=== PATIENT | female | born 1965 | race Two or more races ===

== ENCOUNTER 2022-02-05 14:48 | Inpatient (IN) | payer OTHER ==
[~2022-02-05] VITALS: Ht 165.1 cm; Wt 79.9 kg
[2022-02-05] MEDS ORDERED: cefTRIAXone 1GM/50ML D5W 50 ML IV ONE (17:30)
[2022-02-05] MEDS ORDERED: KETOROLAC TROMETH 30 MG/ML 1ML VIAL IV ONE (17:30)
[2022-02-05] MEDS ORDERED: LACTATED RINGER'S 1,000 ML IV ONE (17:30)
[2022-02-05 19:04] LABS: Basophils # (auto) 0.1 10 ^3/uL (0-0.2); Basophils % (auto) 0.6 % (0.0-2.0); Eosinophils # (auto) 0 10 ^3/uL (0-0.8); Hematocrit 44.7 % (36.0-46.0); Hemoglobin 15.3 g/dL (12.2-16.2); Lymphocytes # (auto) 0.4 10 ^3/uL (0.4-5.4); Lymphocytes % (auto) 1.8 % (10.0-50.0); Mean Corpuscular Hemoglobin 29.9 pg (28.0-32.0); Mean Corpuscular Hgb Conc. 34.3 g/dL (32.0-36.0); Mean Corpuscular Volume 87.2 fL (80.0-100.0); Monocytes # (auto) 0.8 10 ^3/uL (0-1.3); Monocytes % (auto) 3.9 % (0.0-12.0); Neutrophils # (auto) 18.7 10 ^3/uL (1.6-8.6); Neutrophils % (auto) 93.7 % (37.0-80.0); Red Blood Cells 5.12 10^6/uL (4.0-5.20); Red Cell Distribution Width 13.3 % (11.8-14.3)
[2022-02-05] MEDS ORDERED: MORPHINE SULFATE 4 MG/ML SYR/VIAL IV PRN (19:15)
[2022-02-05] MEDS ORDERED: ONDANSETRON HCL 4 MG/2 ML VIAL IV PRN (19:15)
[2022-02-05] MEDS ORDERED: SODIUM CHLORIDE 0.9% 500 ML IV ONE (19:15)
[2022-02-05] MEDS ORDERED: TAMSULOSIN HYDROCHLORIDE 0.4 MG CAP PO ONE (19:15)
[2022-02-05] MEDS ORDERED: ACETAMINOPHEN 325 MG TAB PO PRN (19:15)
[2022-02-05 19:25] LABS: Albumin 4.2 g/dL (3.4-5.0); Calcium 9.5 mg/dL (8.5-10.1); Potassium 3.9 mmol/L (3.5-5.1)
[2022-02-05 19:27] LABS: Total Protein 8.3 g/dL (6.4-8.2)
[2022-02-05 19:33] LABS: Urine Bacteria FEW /hpf (None Seen); Urine Blood 1+ /uL (Negative); Urine Mucus FEW (None Seen); Urine Specific Gravity 1.022 (1.001-1.035); Urine WBC 116 /hpf (0 - 5)
[2022-02-05 22:00] VITALS: BP 133/73
[2022-02-05 22:02] VITALS: BP 133/73
[2022-02-05] MEDS ORDERED: CIPR-173 PO (22:40)
[2022-02-05] MEDS: HYDROcodone-ACET 5/325MG TAB PO PRN (22:54)
[2022-02-06] VITALS (34 sets, daily range): BP systolic 78–158; BP diastolic 42–74
[2022-02-06] MEDS: HYDROcodone-ACET 5/325MG TAB PO PRN ×2 (05:34→22:31)
[2022-02-06 06:47] LABS: Calcium 8.7 mg/dL (8.5-10.1)
[2022-02-06 06:50] LABS: BUN/Creatinine Ratio 11.7; Basophils # (auto) 0 10 ^3/uL (0-0.2); Basophils % (auto) 0.1 % (0.0-2.0); Eosinophils # (auto) 0 10 ^3/uL (0-0.8); Hematocrit 38.7 % (36.0-46.0); Hemoglobin 13.4 g/dL (12.2-16.2); Lymphocytes # (auto) 0.9 10 ^3/uL (0.4-5.4); Lymphocytes % (auto) 5.2 % (10.0-50.0); Mean Corpuscular Hemoglobin 30.2 pg (28.0-32.0); Mean Corpuscular Hgb Conc. 34.5 g/dL (32.0-36.0); Mean Corpuscular Volume 87.4 fL (80.0-100.0); Monocytes # (auto) 0.7 10 ^3/uL (0-1.3); Monocytes % (auto) 4.1 % (0.0-12.0); Neutrophils # (auto) 15.6 10 ^3/uL (1.6-8.6); Neutrophils % (auto) 90.6 % (37.0-80.0); Red Blood Cells 4.43 10^6/uL (4.0-5.20); Red Cell Distribution Width 13.3 % (11.8-14.3); White Blood Cell 17.3 10^3/uL (4.4-10.8)
[2022-02-06 08:37] LABS: INR 1.05 (0.9-1.15); Partial Thromboplastin Time 30.2 sec (23.6-33.0)
[2022-02-06] MEDS ORDERED: cefTRIAXone 1GM/50ML D5W 50 ML IV SCH ×2 (09:00→21:00)
[2022-02-06] MEDS: PANTOPRAZOLE 40 MG TAB PO SCH (10:00)
[2022-02-06] MEDS ORDERED: fentaNYL CITRATE 100 MCG/2 ML VL ONE (12:00)
[2022-02-06] MEDS ORDERED: MIDAZOLAM HCL 2MG/2ML 2ml VIAL (1mg/ml) ONE (12:01)
[2022-02-06] MEDS ORDERED: LIDOCAINE 2%HCL (LOCAL ANESTH.) INJ 10ml MDV ONE (12:01)
[2022-02-06] MEDS ORDERED: HEPARIN SODIUM (PORCINE) 5000 UNITS/ML 1ML VIAL ONE (12:02)
[2022-02-06] MEDS ORDERED: NITROGLYCERIN 0.4 MG SL TAB SL PRN (13:45)
[2022-02-06] MEDS ORDERED: SODIUM CHLORIDE 0.9% 1,000 ML IV SCH (13:45)
[2022-02-06] MEDS ORDERED: MORPHINE SULFATE INJECTION 2 MG/ML SYRG IV PRN (13:45)
[2022-02-06] MEDS: NOREPINEPHRINE 8 MG/250ML KIT 250 ML IV SCH ×2 (13:45→22:31)
[2022-02-06] MEDS ORDERED: SODIUM CHLORIDE 0.9% 1,000 ML IV ONE (13:45)
[2022-02-06] MEDS ORDERED: ACETAMINOPHEN 650 MG RECT SUPP PR PRN (14:00)
[2022-02-06] MEDS ORDERED: ACETAMINOPHEN IV 1000 MG/100ML (10MG/ML) IV ONE (14:00)
[2022-02-06] MEDS: SODIUM CHLOR 0.9% PF (SALINE LOCK) 10ML VIAL/SYR IV SCH ×2 (14:00→21:38)
[2022-02-06] MEDS ORDERED: FUROSEMIDE 40 MG/4 ML VIAL IV ONE ×2 (14:45→15:15)
[2022-02-06] MEDS ORDERED: FUROSEMIDE 40 MG/4 ML VIAL ONE (15:03)
[2022-02-06] MEDS: MEROPENEM 1GM IVPB 100 ML IV SCH (16:45)
[2022-02-06 17:14] LABS: Hematocrit 36.6 % (36.0-46.0); Hemoglobin 12.7 g/dL (12.2-16.2); Mean Corpuscular Hemoglobin 30.1 pg (28.0-32.0); Mean Corpuscular Hgb Conc. 34.6 g/dL (32.0-36.0); Mean Corpuscular Volume 86.9 fL (80.0-100.0); Red Blood Cells 4.22 10^6/uL (4.0-5.20); Red Cell Distribution Width 13.9 % (11.8-14.3); White Blood Cell 13.8 10^3/uL (4.4-10.8)
[2022-02-06 17:27] LABS: Basophils % (manual) 0 (0.0-2.0); Eosinophils % (manual) 0 (0-7); Promyelocytes % 0
[2022-02-06 17:28] LABS: BUN/Creatinine Ratio 11.9; Blast Cells 0; Calcium 7.6 mg/dL (8.5-10.1); Potassium 3.2 mmol/L (3.5-5.1); Reactive Lymphocytes 0
[2022-02-06 18:43] LABS: Band Neutrophils % (manual) 12; Lymphocytes % (manual) 6 (10.0-50.0); Metamyelocytes % 2; Monocytes % (manual) 4 (0-12); Myelocytes % 1
[2022-02-06] MEDS: TEMAZEPAM 15 MG CAP PO PRN (22:31)
[2022-02-07] VITALS (45 sets, daily range): BP systolic 88–148; BP diastolic 58–89
[2022-02-07] MEDS ORDERED: LINEZOLID 600MG/300ML 300 ML IV SCH (02:00)
[2022-02-07] MEDS: MEROPENEM 1GM IVPB 100 ML IV SCH ×2 (03:32→16:40)
[2022-02-07 04:13] LABS: Hematocrit 37.9 % (36.0-46.0); Hemoglobin 12.9 g/dL (12.2-16.2); Mean Corpuscular Hemoglobin 29.6 pg (28.0-32.0); Mean Corpuscular Hgb Conc. 34.1 g/dL (32.0-36.0); Mean Corpuscular Volume 86.9 fL (80.0-100.0); Red Blood Cells 4.36 10^6/uL (4.0-5.20); Red Cell Distribution Width 13.8 % (11.8-14.3); White Blood Cell 25.1 10^3/uL (4.4-10.8)
[2022-02-07 04:27] LABS: Albumin 2.6 g/dL (3.4-5.0); Calcium 7.8 mg/dL (8.5-10.1); Potassium 3.9 mmol/L (3.5-5.1)
[2022-02-07 04:29] LABS: BUN/Creatinine Ratio 16.1
[2022-02-07 04:32] LABS: Bilirubin, Total 1.5 mg/dL (0.2-1.0); Total Protein 6.1 g/dL (6.4-8.2)
[2022-02-07 04:38] LABS: Basophils % (manual) 0 (0.0-2.0); Blast Cells 0; Eosinophils % (manual) 0 (0-7); Metamyelocytes % 0; Promyelocytes % 0; Reactive Lymphocytes 0
[2022-02-07] MEDS: HYDROcodone-ACET 5/325MG TAB PO PRN (05:33)
[2022-02-07] MEDS: SODIUM CHLOR 0.9% PF (SALINE LOCK) 10ML VIAL/SYR IV SCH ×3 (05:35→21:09)
[2022-02-07 06:33] LABS: Band Neutrophils % (manual) 27; Lymphocytes % (manual) 3 (10.0-50.0); Monocytes % (manual) 2 (0-12); Myelocytes % 5
[2022-02-07] MEDS: PANTOPRAZOLE 40 MG TAB PO SCH (10:00)
[2022-02-07] MEDS ORDERED: FUROSEMIDE 40 MG/4 ML VIAL ONE (10:42)
[2022-02-07] MEDS ORDERED: FUROSEMIDE 40 MG/4 ML VIAL IV ONE (10:45)
[2022-02-07] MEDS: ACETAMINOPHEN 325 MG TAB PO PRN ×4 (12:07→18:54)
[2022-02-07] MEDS: TEMAZEPAM 15 MG CAP PO PRN (21:08)
[2022-02-08] MEDS: HYDROcodone-ACET 5/325MG TAB PO PRN ×3 (00:39→15:49)
[2022-02-08] MEDS: MEROPENEM 1GM IVPB 100 ML IV SCH ×3 (03:37→21:05)
[2022-02-08 05:00] VITALS: BP 124/52
[2022-02-08] MEDS: SODIUM CHLOR 0.9% PF (SALINE LOCK) 10ML VIAL/SYR IV SCH ×3 (05:27→21:05)
[2022-02-08 06:11] LABS: Basophils # (auto) 0 10 ^3/uL (0-0.2); Basophils % (auto) 0.3 % (0.0-2.0); Eosinophils # (auto) 0.2 10 ^3/uL (0-0.8); Eosinophils % (auto) 1.8 % (0.0-7.0); Hematocrit 37.1 % (36.0-46.0); Hemoglobin 12.9 g/dL (12.2-16.2); Lymphocytes # (auto) 1.1 10 ^3/uL (0.4-5.4); Lymphocytes % (auto) 7.9 % (10.0-50.0); Mean Corpuscular Hemoglobin 30.1 pg (28.0-32.0); Mean Corpuscular Hgb Conc. 34.8 g/dL (32.0-36.0); Mean Corpuscular Volume 86.7 fL (80.0-100.0); Monocytes # (auto) 0.8 10 ^3/uL (0-1.3); Monocytes % (auto) 5.7 % (0.0-12.0); Neutrophils # (auto) 11.6 10 ^3/uL (1.6-8.6); Neutrophils % (auto) 84.3 % (37.0-80.0); Red Blood Cells 4.28 10^6/uL (4.0-5.20); Red Cell Distribution Width 13.5 % (11.8-14.3); White Blood Cell 13.8 10^3/uL (4.4-10.8)
[2022-02-08 06:39] LABS: Albumin 2.4 g/dL (3.4-5.0); Calcium 8.2 mg/dL (8.5-10.1); Potassium 3.7 mmol/L (3.5-5.1)
[2022-02-08 06:41] LABS: BUN/Creatinine Ratio 18.1
[2022-02-08 06:43] LABS: Bilirubin, Total 0.7 mg/dL (0.2-1.0)
[2022-02-08 09:00] VITALS: BP 118/62
[2022-02-08] MEDS: PANTOPRAZOLE 40 MG TAB PO SCH (09:49)
[2022-02-08 13:00] VITALS: BP 123/75
[2022-02-08 17:00] VITALS: BP 128/71
[2022-02-08 22:29] VITALS: BP 116/67
[2022-02-09] MEDS: HYDROcodone-ACET 5/325MG TAB PO PRN ×2 (00:21→11:33)
[2022-02-09] MEDS: TEMAZEPAM 15 MG CAP PO PRN (00:21)
[2022-02-09 04:08] VITALS: BP 110/72
[2022-02-09] MEDS: MEROPENEM 1GM IVPB 100 ML IV SCH ×3 (05:11→21:20)
[2022-02-09] MEDS: SODIUM CHLOR 0.9% PF (SALINE LOCK) 10ML VIAL/SYR IV SCH ×3 (05:13→21:19)
[2022-02-09 07:38] LABS: Albumin 2.6 g/dL (3.4-5.0); Calcium 8.8 mg/dL (8.5-10.1); Magnesium 2.2 mg/dL (1.6-2.6); Potassium 4.4 mmol/L (3.5-5.1)
[2022-02-09 07:43] LABS: BUN/Creatinine Ratio 14.3; Bilirubin, Total 0.7 mg/dL (0.2-1.0); Total Protein 6.7 g/dL (6.4-8.2)
[2022-02-09 07:51] VITALS: BP 128/79
[2022-02-09 07:53] LABS: Basophils # (auto) 0 10 ^3/uL (0-0.2); Basophils % (auto) 0.3 % (0.0-2.0); Eosinophils # (auto) 0.5 10 ^3/uL (0-0.8); Eosinophils % (auto) 4.5 % (0.0-7.0); Hemoglobin 14.1 g/dL (12.2-16.2); Lymphocytes # (auto) 1.6 10 ^3/uL (0.4-5.4); Lymphocytes % (auto) 16.2 % (10.0-50.0); Mean Corpuscular Hemoglobin 30.5 pg (28.0-32.0); Mean Corpuscular Hgb Conc. 35.2 g/dL (32.0-36.0); Mean Corpuscular Volume 86.6 fL (80.0-100.0); Monocytes # (auto) 0.9 10 ^3/uL (0-1.3); Monocytes % (auto) 8.8 % (0.0-12.0); Neutrophils % (auto) 70.2 % (37.0-80.0); Nucleated Red Blood Cells % 0.1 %; Red Blood Cells 4.62 10^6/uL (4.0-5.20); Red Cell Distribution Width 13.6 % (11.8-14.3)
[2022-02-09] MEDS: PANTOPRAZOLE 40 MG TAB PO SCH (08:42)
[2022-02-09 13:00] VITALS: BP 131/80
[2022-02-09] MEDS: SALINE 0.65 % NASAL SPRAY 45ML BOTTLE EACHNOSTRI PRN (14:00)
[2022-02-09 17:00] VITALS: BP 117/74
[2022-02-09 22:00] VITALS: BP 108/62
[2022-02-10] MEDS: TEMAZEPAM 15 MG CAP PO PRN ×2 (00:31→22:13)
[2022-02-10] MEDS: HYDROcodone-ACET 5/325MG TAB PO PRN ×2 (00:32→22:13)
[2022-02-10 05:00] VITALS: BP 104/61
[2022-02-10] MEDS: MEROPENEM 1GM IVPB 100 ML IV SCH ×3 (05:07→21:48)
[2022-02-10] MEDS: SODIUM CHLOR 0.9% PF (SALINE LOCK) 10ML VIAL/SYR IV SCH ×3 (05:08→21:48)
[2022-02-10 05:52] LABS: Basophils # (auto) 0 10 ^3/uL (0-0.2); Basophils % (auto) 0.3 % (0.0-2.0); Eosinophils # (auto) 0.4 10 ^3/uL (0-0.8); Eosinophils % (auto) 4.5 % (0.0-7.0); Hematocrit 36.6 % (36.0-46.0); Hemoglobin 13.1 g/dL (12.2-16.2); Lymphocytes # (auto) 1.5 10 ^3/uL (0.4-5.4); Lymphocytes % (auto) 16.1 % (10.0-50.0); Mean Corpuscular Hemoglobin 30.5 pg (28.0-32.0); Mean Corpuscular Hgb Conc. 35.8 g/dL (32.0-36.0); Monocytes # (auto) 1.2 10 ^3/uL (0-1.3); Monocytes % (auto) 12.7 % (0.0-12.0); Neutrophils # (auto) 6.3 10 ^3/uL (1.6-8.6); Neutrophils % (auto) 66.4 % (37.0-80.0); Nucleated Red Blood Cells % 0.1 %; Red Cell Distribution Width 13.7 % (11.8-14.3); White Blood Cell 9.5 10^3/uL (4.4-10.8)
[2022-02-10 06:10] LABS: Albumin 2.4 g/dL (3.4-5.0); BUN/Creatinine Ratio 17.2; Calcium 8.8 mg/dL (8.5-10.1); Potassium 3.9 mmol/L (3.5-5.1)
[2022-02-10 06:13] LABS: Bilirubin, Total 0.5 mg/dL (0.2-1.0); Total Protein 6.4 g/dL (6.4-8.2)
[2022-02-10] MEDS: SALINE 0.65 % NASAL SPRAY 45ML BOTTLE EACHNOSTRI PRN (08:01)
[2022-02-10 08:48] VITALS: BP 120/69
[2022-02-10] MEDS: PANTOPRAZOLE 40 MG TAB PO SCH (09:35)
[2022-02-10 13:00] VITALS: BP 112/63
[2022-02-10 17:00] VITALS: BP 104/58
[2022-02-10 22:00] VITALS: BP 110/66
[2022-02-11 05:00] VITALS: BP 123/74
[2022-02-11] MEDS: MEROPENEM 1GM IVPB 100 ML IV SCH ×2 (05:36→13:52)
[2022-02-11] MEDS: SODIUM CHLOR 0.9% PF (SALINE LOCK) 10ML VIAL/SYR IV SCH ×3 (05:36→21:06)
[2022-02-11 06:33] LABS: Basophils # (auto) 0 10 ^3/uL (0-0.2); Basophils % (auto) 0.4 % (0.0-2.0); Eosinophils # (auto) 0.5 10 ^3/uL (0-0.8); Eosinophils % (auto) 5.3 % (0.0-7.0); Hematocrit 38.7 % (36.0-46.0); Hemoglobin 13.5 g/dL (12.2-16.2); Lymphocytes # (auto) 1.9 10 ^3/uL (0.4-5.4); Lymphocytes % (auto) 20.4 % (10.0-50.0); Mean Corpuscular Hemoglobin 29.7 pg (28.0-32.0); Mean Corpuscular Hgb Conc. 34.9 g/dL (32.0-36.0); Mean Corpuscular Volume 85.2 fL (80.0-100.0); Monocytes # (auto) 1.4 10 ^3/uL (0-1.3); Monocytes % (auto) 14.5 % (0.0-12.0); Neutrophils # (auto) 5.6 10 ^3/uL (1.6-8.6); Neutrophils % (auto) 59.4 % (37.0-80.0); Nucleated Red Blood Cells % 0.1 %; Red Blood Cells 4.54 10^6/uL (4.0-5.20); Red Cell Distribution Width 13.6 % (11.8-14.3); White Blood Cell 9.4 10^3/uL (4.4-10.8)
[2022-02-11 06:37] LABS: Potassium 4.2 mmol/L (3.5-5.1)
[2022-02-11 06:51] LABS: Albumin 2.7 g/dL (3.4-5.0); BUN/Creatinine Ratio 17.1; Bilirubin, Total 0.7 mg/dL (0.2-1.0); Calcium 9.3 mg/dL (8.5-10.1); Total Protein 6.8 g/dL (6.4-8.2)
[2022-02-11 09:00] VITALS: BP 108/61
[2022-02-11 13:00] VITALS: BP 114/67
[2022-02-11] MEDS: PANTOPRAZOLE 40 MG TAB PO SCH (13:03)
[2022-02-11] MEDS ORDERED: ERTAPENEM SOD INJ 1 GM in SODIUM CHL 0.9% 50 ML IV ONE (14:15)
[2022-02-11 17:00] VITALS: BP 110/73
[2022-02-11] MEDS: TEMAZEPAM 15 MG CAP PO PRN (23:38)
[2022-02-12 00:23] VITALS: BP 101/58
[2022-02-12] MEDS: SODIUM CHLOR 0.9% PF (SALINE LOCK) 10ML VIAL/SYR IV SCH ×2 (05:05→15:55)
[2022-02-12 06:23] LABS: Basophils # (auto) 0 10 ^3/uL (0-0.2); Basophils % (auto) 0.4 % (0.0-2.0); Eosinophils # (auto) 0.6 10 ^3/uL (0-0.8); Eosinophils % (auto) 6.6 % (0.0-7.0); Hematocrit 39.6 % (36.0-46.0); Hemoglobin 13.9 g/dL (12.2-16.2); Lymphocytes # (auto) 1.6 10 ^3/uL (0.4-5.4); Lymphocytes % (auto) 17.7 % (10.0-50.0); Mean Corpuscular Hemoglobin 30.5 pg (28.0-32.0); Mean Corpuscular Hgb Conc. 35.2 g/dL (32.0-36.0); Mean Corpuscular Volume 86.7 fL (80.0-100.0); Monocytes % (auto) 11.2 % (0.0-12.0); Neutrophils # (auto) 5.8 10 ^3/uL (1.6-8.6); Neutrophils % (auto) 64.1 % (37.0-80.0); Nucleated Red Blood Cells % 0.1 %; Red Blood Cells 4.57 10^6/uL (4.0-5.20); Red Cell Distribution Width 13.5 % (11.8-14.3); White Blood Cell 9.1 10^3/uL (4.4-10.8)
[2022-02-12 06:53] LABS: Albumin 2.7 g/dL (3.4-5.0); BUN/Creatinine Ratio 22.4; Calcium 9.1 mg/dL (8.5-10.1)
[2022-02-12 07:03] LABS: Bilirubin, Total 0.4 mg/dL (0.2-1.0)
[2022-02-12 09:00] VITALS: BP 100/59
[2022-02-12] MEDS: PANTOPRAZOLE 40 MG TAB PO SCH (09:16)
[2022-02-12] MEDS ORDERED: ERTAPENEM SOD INJ 1 GM in SODIUM CHL 0.9% 50 ML IV SCH (10:00)
[2022-02-12 13:00] VITALS: BP 125/80
[2022-02-12 13:15] VITALS: BP 125/80
== END 2022-02-12 16:27 | disposition home health service (06) | DRG 871 ==
LOC: ER 14:48 → OVERFLOW 19:04 → WEST WING 21:29 → ICU WEST 02-06 14:51 → TELE 02-07 12:39 → TELE-WESTW 02-07 15:27 → WEST WING 02-11 17:15
PROVIDERS: ADMIT Nurse Practitioner; ATTEND Internal Medicine
PROC: 0T9130Z Drainage of Left Kidney with Drainage Device, Percutaneous Approach (ICD-10-PCS; principal; 2022-02-06)
PROC: BT42ZZZ Ultrasonography of Left Kidney (ICD-10-PCS; 2022-02-06)
PROC: BT121ZZ Fluoroscopy of Left Kidney using Low Osmolar Contrast (ICD-10-PCS; 2022-02-06)
DX: A41.51 Sepsis due to Escherichia coli [E. coli] (principal); I50.31 Acute diastolic (congestive) heart failure; N13.6 Pyonephrosis; N17.9 Acute kidney failure, unspecified; N10 Acute pyelonephritis; N13.9 Obstructive and reflux uropathy, unspecified; Z20.822 Contact with and (suspected) exposure to COVID-19; B96.20 Unspecified Escherichia coli [E. coli] as the cause of diseases classified elsewhere; Z82.49 Family history of ischemic heart disease and other diseases of the circulatory system
CPT/HCPCS: 36415; 36600; 50430; 71045; 74176; 74425; 76942; 80048; 80053; 81001; 82805; 82962; 83605; 83735; 83880; 85007; 85025; 85027; 85610; 85730; 86850; 86900; 86901; 87040; 87077; 87081; 87086; 87088; 87186; 87205; 93005; 93306; 96361; 96365; 96375; 97163; 99152; C1729; G0378; J0131; J0696; J1335; J1885; J2001; J2185; J2250